=== PATIENT | male | born 1950 | race Caucasian/White ===

== ENCOUNTER 2018-12-02 17:48 | Inpatient (IN) ==
[2018-12-02] MEDS ORDERED: MORPHINE 4 MG/1 ML VIAL IV PRN (20:36)
[2018-12-02] MEDS ORDERED: DEXTROSE 50% 25 GM/50 ML VIAL IV PRN (20:36)
[2018-12-02] MEDS ORDERED: GLUCAGON 1 MG VIAL IM PRN (20:36)
[2018-12-02] MEDS ORDERED: ACETAMINOPHEN 325 MG TABLET PO PRN (20:36)
[2018-12-02] MEDS ORDERED: diphenhydrAMINE CAP 25 MG CAPSULE PO PRN (20:36)
[2018-12-02] MEDS: SODIUM CHLORIDE 0.9% 1,000 ML IV SCH (21:49)
[2018-12-02] MEDS: LEVOFLOXACIN INJ 750 MG in PREMIX 1 EACH IV SCH (21:54)
[2018-12-02] MEDS: ONDANSETRON 4 MG/2 ML VIAL IV PRN (22:09)
[2018-12-02 22:38] LABS: Basophils % 0.2 % (0.0-0.8); Eosinophils # 0.1 10*3/uL (0.0-0.87); Eosinophils % 0.9 % (0.00-10.9); Hematocrit 36.1 VOL% (42.0-52.0); Hemoglobin 11.7 GM/DL (14.0-18.0); Immature Granulocytes % 0.6 %; Immature Granulocytes Absolute 0.08 #; Lymphocytes # 1.3 10*3/uL (1.4-4.0); Lymphocytes % 8.8 % (21.2-54.2); Mean Corpuscular HGB Conc 32.4 GM/DL (32-36); Mean Corpuscular Volume 90.3 FL (87-102); Mean Platelet Volume 9.5 FL (9.6-12.0); Monocytes % 6.5 % (1.7-12.7); Platelet Count 203 T/CUMM (130-400); Red Cell Distribution Width 12.7 % (9.3-17.3); White Blood Count 14.3 T/CUMM (4-12)
[2018-12-02 23:07] LABS: Albumin 2.6 G/DL (3.4-5.0); Bilirubin,Total 1.2 MG/DL (0.2-1.0); Calcium 8.4 MG/DL (8.5-10.1); Osmolality,Calculated 282.5 MOS/KG (273-304); Risk Ratio 3.44; Total Protein 7.6 G/DL (6.4-8.3); VLDL CHOLESTEROL 13.2 MG/DL
[2018-12-03] MEDS: INSULIN REGULAR 100 UNIT/ML SUBCUT SCH ×4 (00:43→19:09)
[2018-12-03 02:07] LABS: Apearance,Urine CLOUDY (Clear); Bilirubin,Urine Negative (Negative); Blood, Urine Moderate mg/dL (Negative); Glucose,Urine (UA) >=500 mg/dL (Negative); Hyaline Casts,Urine 2 /LPF (0-3); Ketones,Urine 5 mg/dL (Negative); Mucus,Urine Occasional /LPF (Occasional); Nitrite,Urine Positive (Negative); Protein,Urine Negative; RBC,Urine 42 /HPF (0-4); Urine Color Yellow (Yellow); Urine Specific Gravity 1.022 (1.001-1.035); Urine Urobilinogen < 2.0 EU/DL (0.2-1.0); WBC,Urine 282 /HPF (0-6)
[2018-12-03] MEDS ORDERED: HYDROCORTISONE 2.5% RECTAL CREAM 30 GM TUBE TOP PRN (03:09)
[2018-12-03] MEDS ORDERED: TOBRAMYCIN INJ 80 MG in SODIUM CHLORIDE 0.9% 100 ML IV SCH (09:30)
[2018-12-03] MEDS ORDERED: POTASSIUM CHLORIDE 20 MEQ TABLET PO ONE (09:30)
[2018-12-03] MEDS ORDERED: HYDROmorphone 2 MG/1 ML VIAL IV PRN ×3 (09:59→10:41)
[2018-12-03] MEDS: INSULIN GLARGINE 100 UNIT/ML SUBCUT SCH (10:17)
[2018-12-03] MEDS ORDERED: PRAMOXINE 1% RECTAL FOAM 15 GM CAN TOP PRN (10:43)
[2018-12-03] MEDS: SODIUM CHLORIDE 0.9% 1,000 ML IV SCH ×3 (11:04→21:31)
[2018-12-03] MEDS: TOBRAMYCIN IV SCH (11:12)
[2018-12-03] MEDS: SODIUM CHLORIDE 0.9% IV SCH (11:12)
[2018-12-03] MEDS ORDERED: LIDOCAINE 4% TOP SOLN 50 ML BOTTLE TOP PRN (11:13)
[2018-12-03] MEDS: BISACODYL 5 MG TABLET PO SCH (13:26)
[2018-12-03] MEDS: HYDROCORTISONE 2.5% RECTAL CREAM 30 GM TUBE TOP SCH ×2 (13:28→18:06)
[2018-12-03] MEDS: LEVOFLOXACIN INJ 750 MG in PREMIX 1 EACH IV SCH (21:32)
[2018-12-04] MEDS: INSULIN REGULAR 100 UNIT/ML SUBCUT SCH ×4 (00:34→20:08)
[2018-12-04] MEDS: HYDROCORTISONE 2.5% RECTAL CREAM 30 GM TUBE TOP SCH ×5 (06:02→22:30)
[2018-12-04] MEDS: SODIUM CHLORIDE 0.9% 1,000 ML IV SCH ×3 (06:42→22:29)
[2018-12-04 07:06] LABS: Basophils % 0.3 % (0.0-0.8); Eosinophils # 0.1 10*3/uL (0.0-0.87); Eosinophils % 1.2 % (0.00-10.9); Immature Granulocytes % 0.5 %; Immature Granulocytes Absolute 0.05 #; Lymphocytes # 1.7 10*3/uL (1.4-4.0); Lymphocytes % 15.4 % (21.2-54.2); Mean Corpuscular HGB Conc 32.4 GM/DL (32-36); Mean Corpuscular Volume 90.2 FL (87-102); Mean Platelet Volume 9.6 FL (9.6-12.0); Monocytes % 7.9 % (1.7-12.7); Neutrophils % 74.7 % (38.7-73.9); Platelet Count 221 T/CUMM (130-400); Red Blood Count 3.77 MC/CUMM (3.8-5.5); Red Cell Distribution Width 12.9 % (9.3-17.3); White Blood Count 10.7 T/CUMM (4-12)
[2018-12-04 07:35] LABS: Calcium 8.5 MG/DL (8.5-10.1); Osmolality,Calculated 279.4 MOS/KG (273-304)
[2018-12-04] MEDS ORDERED: PROPOFOL 200 MG/20 ML VIAL IV ONE (08:30)
[2018-12-04] MEDS ORDERED: SEVOFLURANE 1 UNIT/15 MINUTE INH ONE (08:30)
[2018-12-04] MEDS ORDERED: MIDAZOLAM 2 MG/2 ML VIAL ONE (08:31)
[2018-12-04] MEDS ORDERED: GLYCOPYRROLATE 0.4 MG/2 ML VIAL ONE (08:31)
[2018-12-04] MEDS ORDERED: fentaNYL 100 MCG/2 ML VIAL ONE (08:31)
[2018-12-04] MEDS ORDERED: ROCURONIUM 100 MG/10 ML VIAL IV ONE (08:32)
[2018-12-04] MEDS ORDERED: PHENYLEPHRINE 1 MG/10 ML SYRINGE IV ONE (08:32)
[2018-12-04] MEDS ORDERED: NEOSTIGMINE 10 MG/10 ML VIAL ONE (08:32)
[2018-12-04] MEDS ORDERED: SUCCINYLCHOLINE 200 MG/10 ML VIAL ONE (08:32)
[2018-12-04] MEDS ORDERED: HYDROmorphone 2 MG/1 ML VIAL ONE (08:46)
[2018-12-04] MEDS ORDERED: ONDANSETRON 4 MG/2 ML VIAL ONE (08:46)
[2018-12-04] MEDS ORDERED: ONDANSETRON 4 MG/2 ML VIAL IV PRN (08:46)
[2018-12-04] MEDS: HYDROmorphone 2 MG/1 ML VIAL IV PRN ×4 (08:48→09:08)
[2018-12-04] MEDS: ONDANSETRON 4 MG/2 ML VIAL IV PRN (08:50)
[2018-12-04] MEDS: BISACODYL 5 MG TABLET PO SCH (12:07)
[2018-12-04] MEDS: OXYBUTYNIN XL 10 MG TABLET PO SCH (12:25)
[2018-12-04] MEDS: INSULIN GLARGINE 100 UNIT/ML SUBCUT SCH (12:25)
[2018-12-04] MEDS: TOBRAMYCIN IV SCH (12:26)
[2018-12-04] MEDS: SODIUM CHLORIDE 0.9% IV SCH (12:26)
[2018-12-04] MEDS: LEVOFLOXACIN INJ 750 MG in PREMIX 1 EACH IV SCH (20:09)
[2018-12-05] MEDS: INSULIN REGULAR 100 UNIT/ML SUBCUT SCH ×4 (00:42→18:09)
[2018-12-05] MEDS: ONDANSETRON 4 MG/2 ML VIAL IV PRN (04:35)
[2018-12-05 06:11] LABS: Basophils % 0.3 % (0.0-0.8); Eosinophils # 0.2 10*3/uL (0.0-0.87); Eosinophils % 1.8 % (0.00-10.9); Hematocrit 33.2 VOL% (42.0-52.0); Hemoglobin 10.6 GM/DL (14.0-18.0); Immature Granulocytes % 0.5 %; Immature Granulocytes Absolute 0.05 #; Lymphocytes # 1.5 10*3/uL (1.4-4.0); Lymphocytes % 15.8 % (21.2-54.2); Mean Corpuscular HGB Conc 31.9 GM/DL (32-36); Mean Corpuscular Volume 91.2 FL (87-102); Mean Platelet Volume 9.4 FL (9.6-12.0); Monocytes % 8.2 % (1.7-12.7); Neutrophils % 73.4 % (38.7-73.9); Platelet Count 204 T/CUMM (130-400); Red Blood Count 3.64 MC/CUMM (3.8-5.5); Red Cell Distribution Width 12.8 % (9.3-17.3); White Blood Count 9.4 T/CUMM (4-12)
[2018-12-05] MEDS: SODIUM CHLORIDE 0.9% 1,000 ML IV SCH ×3 (06:17→22:03)
[2018-12-05 06:40] LABS: Calcium 8.4 MG/DL (8.5-10.1)
[2018-12-05] MEDS: OXYBUTYNIN XL 10 MG TABLET PO SCH (08:56)
[2018-12-05] MEDS: BISACODYL 5 MG TABLET PO SCH (08:56)
[2018-12-05] MEDS: HYDROCORTISONE 2.5% RECTAL CREAM 30 GM TUBE TOP SCH ×4 (08:57→22:03)
[2018-12-05] MEDS: INSULIN GLARGINE 100 UNIT/ML SUBCUT SCH (08:57)
[2018-12-05] MEDS ORDERED: MAGNESIUM SULF RIDER 4 GM in PREMIX 1 EACH IV ONE (09:35)
[2018-12-05] MEDS: SODIUM CHLORIDE 0.9% IV SCH (14:17)
[2018-12-05] MEDS: TOBRAMYCIN IV SCH (14:17)
[2018-12-05] MEDS: VANCOMYCIN INJ 1,500 MG in SODIUM CHLORIDE 0.9% 500 ML IV SCH (16:52)
[2018-12-05] MEDS: LEVOFLOXACIN INJ 750 MG in PREMIX 1 EACH IV SCH (22:01)
[2018-12-06] MEDS: INSULIN REGULAR 100 UNIT/ML SUBCUT SCH ×4 (00:49→17:14)
[2018-12-06] MEDS: VANCOMYCIN INJ 1,500 MG in SODIUM CHLORIDE 0.9% 500 ML IV SCH (06:13)
[2018-12-06 07:52] LABS: Basophils % 0.4 % (0.0-0.8); Eosinophils # 0.3 10*3/uL (0.0-0.87); Eosinophils % 2.8 % (0.00-10.9); Hematocrit 35.9 VOL% (42.0-52.0); Hemoglobin 11.5 GM/DL (14.0-18.0); Immature Granulocytes % 0.3 %; Immature Granulocytes Absolute 0.03 #; Lymphocytes # 1.8 10*3/uL (1.4-4.0); Lymphocytes % 20.1 % (21.2-54.2); Mean Corpuscular Volume 89.8 FL (87-102); Mean Platelet Volume 9.2 FL (9.6-12.0); Monocytes % 7.6 % (1.7-12.7); Neutrophils % 68.8 % (38.7-73.9); Platelet Count 239 T/CUMM (130-400); Red Cell Distribution Width 12.6 % (9.3-17.3); White Blood Count 8.9 T/CUMM (4-12)
[2018-12-06 08:07] LABS: Calcium 8.7 MG/DL (8.5-10.1); Osmolality,Calculated 283.1 MOS/KG (273-304)
[2018-12-06] MEDS: INSULIN GLARGINE 100 UNIT/ML SUBCUT SCH (08:22)
[2018-12-06] MEDS: BISACODYL 5 MG TABLET PO SCH (08:22)
[2018-12-06] MEDS: OXYBUTYNIN XL 10 MG TABLET PO SCH (08:23)
[2018-12-06] MEDS: HYDROCORTISONE 2.5% RECTAL CREAM 30 GM TUBE TOP SCH ×4 (09:42→21:00)
[2018-12-06] MEDS: ceFAZolin 2,000 MG in PREMIX 1 EACH IV SCH ×2 (10:44→17:13)
[2018-12-06] MEDS: SODIUM CHLORIDE 0.9% 1,000 ML IV SCH ×2 (10:45→20:52)
[2018-12-06] MEDS: LEVOFLOXACIN INJ 750 MG in PREMIX 1 EACH IV SCH (20:52)
[2018-12-07] MEDS: INSULIN REGULAR 100 UNIT/ML SUBCUT SCH ×4 (00:42→17:22)
[2018-12-07] MEDS: ceFAZolin 2,000 MG in PREMIX 1 EACH IV SCH ×4 (02:17→17:27)
[2018-12-07 07:28] LABS: Basophils % 0.6 % (0.0-0.8); Eosinophils # 0.3 10*3/uL (0.0-0.87); Eosinophils % 4.4 % (0.00-10.9); Hematocrit 35.2 VOL% (42.0-52.0); Hemoglobin 11.2 GM/DL (14.0-18.0); Immature Granulocytes % 0.6 %; Immature Granulocytes Absolute 0.04 #; Lymphocytes # 1.8 10*3/uL (1.4-4.0); Lymphocytes % 27.1 % (21.2-54.2); Mean Corpuscular HGB Conc 31.8 GM/DL (32-36); Mean Corpuscular Volume 90.5 FL (87-102); Mean Platelet Volume 9.6 FL (9.6-12.0); Monocytes % 9.9 % (1.7-12.7); Neutrophils % 57.4 % (38.7-73.9); Platelet Count 226 T/CUMM (130-400); Red Blood Count 3.89 MC/CUMM (3.8-5.5); Red Cell Distribution Width 12.8 % (9.3-17.3); White Blood Count 6.8 T/CUMM (4-12)
[2018-12-07 07:56] LABS: Calcium 8.7 MG/DL (8.5-10.1); Osmolality,Calculated 281.1 MOS/KG (273-304)
[2018-12-07] MEDS: INSULIN GLARGINE 100 UNIT/ML SUBCUT SCH (08:36)
[2018-12-07] MEDS: OXYBUTYNIN XL 10 MG TABLET PO SCH (08:36)
[2018-12-07] MEDS: SODIUM CHLORIDE 0.9% 1,000 ML IV SCH (08:40)
[2018-12-07] MEDS: BISACODYL 5 MG TABLET PO SCH (09:06)
[2018-12-07] MEDS: HYDROCORTISONE 2.5% RECTAL CREAM 30 GM TUBE TOP SCH ×4 (09:06→22:12)
[2018-12-07] MEDS: LEVOFLOXACIN INJ 750 MG in PREMIX 1 EACH IV SCH (20:40)
[2018-12-08] MEDS: INSULIN REGULAR 100 UNIT/ML SUBCUT SCH ×3 (00:45→12:21)
[2018-12-08] MEDS: ceFAZolin 2,000 MG in PREMIX 1 EACH IV SCH ×2 (02:45→13:35)
[2018-12-08] MEDS: HYDROCORTISONE 2.5% RECTAL CREAM 30 GM TUBE TOP SCH ×2 (08:20→12:23)
[2018-12-08] MEDS: OXYBUTYNIN XL 10 MG TABLET PO SCH (09:40)
[2018-12-08] MEDS: INSULIN GLARGINE 100 UNIT/ML SUBCUT SCH (09:40)
[2018-12-08] MEDS: BISACODYL 5 MG TABLET PO SCH (09:43)
[2018-12-08 12:11] VITALS: BP 109/73
== END 2018-12-08 14:40 | disposition home or self-care (01) | DRG 713 ==
LOC: N.5E → SUATTDRO 20:38
PROVIDERS: ADMIT Internal Medicine; ATTEND Internal Medicine